=== PATIENT | female | born 2000 | race Caucasian/White ===

== ENCOUNTER 2021-10-30 18:40 | Inpatient (IN) | payer OTHER, SELFPAY ==
[2021-10-30] VITALS (15 sets, daily range): BP systolic 102–137; BP diastolic 66–81; PULSE 69–118; TEMP 36.4–36.6; O2SAT 98–100; BMI 25.0
[2021-10-30 19:28] LABS: ROM Internal Control Test YES-OK TO RESULT pt. (Internal QC); ROM Patient Test Negative (Negative)
[2021-10-30 20:31] LABS: Absolute Lymphocyte Count 1.36 X10^3/uL (0.83-4.51); Absolute Neutrophil Count 9.9 X10^3/uL (2.0-7.7); Basophil# 0.02 X10^3/uL; Basophil% 0.2 % (0-1); Eosinophil# 0.02 X10^3/uL; Eosinophils% 0.2 % (0-5); Hematocrit 36.4 % (37-47); Hemoglobin 12.3 g/dL (12.0-15.0); Lymphocyte # 1.36 X10^3/ul (0.83-4.51); Lymphocyte % 11.4 % (19-41); Mean Corp Hgb Conc 33.8 g/dL (32-36); Mean Corpuscular Hgb 30.8 pg (27.0-32.0); Mean Platelet Vol. 13.1 fl (6.2-12.0); Monocyte# 0.57 X10^3/uL; Monocyte% 4.8 % (0-10); NRBC Flagged by Analyzer 0 % (0-5); Neutrophil # 9.93 X10^3/uL (2.7-7.7); Neutrophil % 82.7 % (47-70); Platelet Count 135 K/mm3 (150-450); RBC Distribution Width CV 12.9 % (11.6-14.6)
--- NOTE | 2021-10-30 20:39 | PCM.HP.OB ---
HPI - General General Date of Admission: 10/30/21 Date of Service: 10/30/21 Chief Complaint: labor HPI Narrative BITA LYONS, is a 21 F at 38w1d who presents in labor at 5 cm dilated. No vb, lof. Good FM. History of hyperemesis on Zofran pump. History of IUGR EFW 16% with AC3%. PFSH PFS Medical History (Updated 10/30/21 @ 20:[address] Carmel Dotson, DO) Anxiety Depression Allergy/AdvReac Type Severity Reaction Status Date / Time No Known Allergies Allergy Verified 10/30/21 19:18 Family History no significant family his Surgical History no surgical history Social History Smoking Status: Current every day smoker History Elective abortions Hx Para 1 Spontaneous abortions Hx # Term Pregnancies Ectopic pregnancies Hx # Pregnancies Multiple births # of living children NST FHR Rate Baby A Baseline: 140 Variability:: Moderate Accelerations:: None Decelerations:: None Vital Signs Vital Signs Vital Signs: 10/30/21 19:52 10/30/21 19:52 10/30/21 20:34 Pulse Rate 118 H 104 H Blood Pressure 137/75 H BP Systolic 137 BP Diastolic 75 Pulse Ox 10/30/21 20:34 Pulse Rate Blood Pressure BP Systolic BP Diastolic Pulse Ox 100 Weight Weight: 174 lb 8 oz Body Mass Index (BMI) 25.0 Labs Labs Labs: Blood Type Pending Antibody Screen Pending Hct 36.4 % (37-47) L Hgb 12.3 g/dL (12.0-15.0) Assessment & Plan (1) 38 weeks gestation of : PLAN: Admit for routine intrapartum care. GBS negative. Nitrous Oxide and warm water immersion for pain control. Bitacurtis Avery CNM made aware of patient on L&D. See delivery report. (2) History of hyperemesis gravidarum: (3) IUGR (intrauterine growth restriction): (4) History of depression: (5) History of anxiety:
[2021-10-30] MEDS: Oxytocin 30 units/NS 500 ml 30 UNITS/500 ML IV.SOLN 334 UNITS IV (20:46)
--- NOTE | 2021-10-30 20:56 | EX.PCM.OBRPT ---
Assessment & Plan (1) Precipitous delivery: (2) 38 weeks gestation of : (3) IUGR (intrauterine growth restriction): Maternal Data Information SILVANO Calculator Estimated Delivery Date Method Current WG Current Estimate 11/12/21 Manual 38w 1d Vaginal Delivery Maternal Presentation Maternal Presentation: Active Labor Maternal Presentation: Patient at 38.1 weeks gestation that presents in spontaneous, active labor. Operative Information Pre-Operative Diagnosis: Term gestation, Spontaneous active labor Post-Operative Diagnosis: Precipitous delivery, live female infant Surgery / Procedure Performed: Spontaneous Vaginal Delivery Type of Anesthesia: None Estimated Blood Loss: 250 cc Time of Delivery: 20:42 Findings Description of Procedure: Called to room due to patient wanting to push. Bulging bag ruptured artificially for clear fluid. Patient delivered infant head with next push followed immediately by body. Cord around body. Vigorous female placed on maternal abdomen and attended to by nursing staff. 3 vessel cord clamped and cut by FOB after delay. Pitocin IV started for active management of the third stage of labor. Placenta delivered spontaneously and intact. Vaginal sweep completed. Vagina and perineum intact. Fundus firm 2 below U. EBL 250 cc, APGARS 8/9. Patient and infant bonding well at this time. Presentation: Vertex Amniotic Membrane Rupture Type: Artificial Time of Membrane Rupture: 2036 Amniotic Fluid Description: Clear Placental Delivery Description: Spontaneous Placenta Disposition: [facility] Cord Vessel Description: 3 Vessels Cord Entanglement: - (Around body x1) Nuchal Cord Compression: Without compression Infant A Gender: Female (1 minute): 8 (5 minute): 9 Delayed Cord Clamping: Yes Post Vaginal Delivery Medications Given After Delivery: IV Pitocin Episiotomy Description: None Laceration: None
[2021-10-30 21:50] LABS: Amphetamine Urine VISTA NEGATIVE (<1000 ng/mL); Barbiturate Urine VISTA NEGATIVE (< 200 ng/mL); Benzodiazepine Urine VISTA NEGATIVE (< 200 ng/mL); Cocaine Urine VISTA NEGATIVE (< 300 ng/mL); Ecstacy Urine VISTA NEGATIVE (< 500 ng/mL); Methadone Urine VISTA NEGATIVE (< 300 ng/mL); PCP Urine VISTA NEGATIVE (< 25 ng/mL); THC Urine VISTA POSITIVE (< 50 ng/mL); Vista UDS pH Range 8
[2021-10-31] VITALS (7 sets, daily range): BP systolic 108–120; BP diastolic 69–73; PULSE 72–81; RESP 14–16; TEMP 36.7–36.8; O2SAT 97–99
--- NOTE | 2021-10-31 09:48 | PN.OBGYN_ITS ---
Subjective Subjective Patient seen at bedside. Feeling good. Ambulating and voiding without difficulty. with minimal support. Lochia decreasing. Desires discharge home tonight after 24 hours. Objective Data Objective Data Vital Signs: Vital Signs Temp Pulse Resp BP Pulse Ox O2 Del Method 98.3 F 78 16 108/70 97 Room Air 10/31/21 14:41 10/31/21 14:42 10/31/21 14:41 10/31/21 14:42 10/31/21 14:41 10/31/21 14:41 Oxygen Delivery Method Room Air Weight: 174 lb 8 oz Body Mass Index (BMI) 25.0 Intake & Output: Intake and Output for Last 24 Hours 10/29/21 10/30/21 10/31/21 23:59 23:59 23:59 Intake Total 500 / 500 Output Total 600 / 600 Balance -100 / -100 Lab / Micro Data Result Diagrams: 10/30/21 19:20 Labs: Laboratory Results - last 24 hr 10/30/21 18:40: Vag Amniotic Fld Detect Negative 10/30/21 19:20: WBC 12.0 H, RBC 4.00 L, Hgb 12.3, Hct 36.4 L, MCV 91.0, MCH 30.8, MCHC 33.8, RDW Std Deviation 42.0, RDW Coeff of Toribio 12.9, Plt Count 135 L, MPV 13.1 H, Immature Gran % (Auto) 0.700, Neut % (Auto) 82.7 H, Lymph % (Auto) 11.4 L, [place]aus % (Auto) 4.8, Eos % (Auto) 0.2, Baso % (Auto) 0.2, Absolute Neuts (auto) 9.9 H, Absolute Lymphs (auto) 1.36, Nucleated RBC % 0 10/30/21 19:20: Blood Type O NEGATIVE, Antibody Screen NEGATIVE 10/30/21 21:05: Urine Opiates Screen NEGATIVE, Urine Methadone Screen NEGATIVE, Ur Barbiturates Screen NEGATIVE, Ur Phencyclidine Scrn NEGATIVE, Ur Amphetamines Screen NEGATIVE, MDMA (Ecstasy) Screen NEGATIVE, U Benzodiazepines Scrn NEGATIVE, Urine Cocaine Screen NEGATIVE, U Cannabinoids Screen POSITIVE H, Ur Drug Screen Comment Micro: Microbiology 10/30/21 19:20 Nasal Secretion SARS-CoV-2 Antigen (Rapid) - Final ROS Eyes Eyes: Denies blurry vision, change in vision or spots in vision ENT HEENT: Denies dizziness or headache(s) Cardiovascular Cardiovascular: Denies abdominal pain, chest pain or dyspnea Respiratory/Chest Respiratory/Chest: Denies cough, dyspnea, shortness of breath at rest or shortness of breath with exertion Gastrointestinal Gastrointestinal: Denies abdominal pain, diarrhea or vomiting Genitourinary Genitourinary: Denies change in urinary stream, difficulty urinating or dysuria Musculoskeletal Musculoskeletal: Reports none Integumentary Integumentary: Denies rash Neurologic Neurologic: Denies dizziness, headache(s), memory loss or weakness Physical Exam Const alert and no apparent distress General Appearance: cooperative and comfortable Exam Limitations: no limitations HEENT normocephalic Eyes General Eye: normal appearance of both eyes Neck full ROM General: normal visual inspection Chest Chest: symmetrical chest wall rise Resp normal respiratory effort and normal air movement Effort and Inspection: symmetric chest movement Auscultation: clear to auscultation bilaterally Cardio regular rate and regular rhythm GI normal to inspection, nondistended, normoactive bowel sounds Back/Spine normal ROM Extremity full ROM and no calf tenderness General Extremity: normal exam except as noted Skin no rashes or lesions noted Neuro CN's II-XII intact bilaterally Psych mental status grossly normal Assessment & Plan (1) Precipitous delivery: (2) Care and examination of lactating mother: PLAN: Plan PPD 1 Routine care support D/C home with follow up in office within 10 days.
--- NOTE | 2021-10-31 16:53 | PCM.DC ---
Discharge Instructions Diet Discharge Diet: No restrictions Activity Discharge Activity: Return to Normal Activity, May Shower and May Take a Tub Bath May resume sexual activity in: 4-6 weeks Weight Bearing Status: Weight bearing as tolerated Dressing / Incision Call your doctor if you observe: Inability to urinate, Using more than 1 pad per hour, Shortness of breath, Dizziness, Swelling in the ankles, Chest pain, Calf discomfort and Uncontrolled pain Follow Up Care When: Within 10 days Test Results: Test results from this visit will be discussed in further detail at your follow-up appointment, if applicable. Discharge Plan Admission Admit Date/Time: 10/30/21 18:40 Primary Reason for Your Visit: Labor and Delivery Attending Provider: Carmel Dotson Primary Care Provider: Care Physician,No Primary Discharge Orders/Prescriptions Referrals / Follow Up: Caryn Avery CNM [Med Staff - [facility] Practice Prof] - Care Physician,No Primary [Primary Care Provider] - Disposition Disposition (needs filled in before D/C Order can be placed): Home, Self Care
== END 2021-10-31 22:30 | disposition home or self-care (01) | DRG 807 ==
LOC: WPOUT 18:43 → WP 18:43
PROVIDERS: Admitting Provider Obstetrics & Gynecology; Visit Provider Obstetrics & Gynecology
DX: O62.3 Precipitate labor (principal); Z37.0 Single live birth; O36.5930 Maternal care for other known or suspected poor fetal growth, third trimester, not applicable or unspecified; F17.200 Nicotine dependence, unspecified, uncomplicated; F41.9 Anxiety disorder, unspecified; O99.344 Other mental disorders complicating childbirth; F32.A Depression, unspecified; O99.334 Smoking (tobacco) complicating childbirth; Z3A.38 38 weeks gestation of pregnancy; O69.81X0 Labor and delivery complicated by cord around neck, without compression, not applicable or unspecified; Z39.1 Encounter for care and examination of lactating mother
CPT/HCPCS: 59025; 59050; 80307; 84112; 85025; 86850; 86900; 86901; 87811; 99218; 99406; G0378

== ENCOUNTER 2022-01-15 08:48 | Day surgery (SDC) | payer OTHER, MEDICAID, SELFPAY ==
[2022-01-15] VITALS (8 sets, daily range): BP systolic 88–114; BP diastolic 45–72; PULSE 59–119; RESP 16–22; TEMP 36.7–37.3; O2SAT 92–100; BMI 25.5
--- NOTE | 2022-01-15 | FALS_PTH ---
PATIENT: BITA LYONS LOC: [facility] [place] U#:[id number] AGE/SX: 21/ ROOM: RE01/15/[address]: Dr. Juanita Messer MD : 2000 BED: DIS: 01/15/2022 SPEC #: [id number] RECD: 01/15/22 13:14 STATUS: JOLLY ARVIZUSampson #: [id number] ERASMO: 01/15/22 00:[address]: Juanita Messer DEPT: SURGICAL PATHOLOGY RECD BY: Adán Azul Tissues: Fallopian tube Procedures: Surgery Specimen Level II HEADER OPERATION: Laparoscopic salpingectomy PRE-OP DIAGNOSIS: Sterilization TISSUE SUBMITTED: Bilateral fallopian tubes MICROSCOPIC DIAGNOSIS Right and left fallopian tubes, bilateral salpingectomies: Complete cross-sections of fallopian tubes. Fragments of benign paratubal cysts. AM:albin 01/16/2022 MICROSCOPIC DESCRIPTION Slides are reviewed. GROSS DESCRIPTION Received in fixative is one container labeled with the patient's name and designated bilateral fallopian tubes. The specimen consists of bilateral fallopian tubes including fimbrial ends measuring 6.5 cm in length and 0.5 cm in diameter and 6 cm in length and 0.5 cm in diameter. A small detached portion of fallopian tube is also noted measuring 0.5 cm in length and 0.3 cm in diameter. The fallopian tubes are not identified as right or left. Sections reveal unremarkable cut surfaces. Also received in the container is a piece of silva-pink cyst measuring 0.5 x 0.3 x 0.1 cm. Rn Call Center sections are submitted in two cassettes as follows: 1 - one fallopian tube, 2 - second fallopian and cyst. / SJ:rg 01/15/2022 TC:5 CPT: 49953 x2
--- NOTE | 2022-01-15 09:14 | PCM.HP.BLA ---
History and Physical Date of Admission: 01/15/22 21-year-old 2 para 2 female who presents for elective sterilization. Past medical history significant for migraines, irritable bowel syndrome, anxiety and depression, Raynaud's Allergies: No known drug allergies. Medications: None Past surgical history: None Physical exam: Awake, alert, no acute distress Skin: Warm dry and intact Lungs: Clear to auscultation bilateral Heart: S1-S2 regular rate and rhythm Assessment & Plan Assessment/Plan (1) Sterilization: PLAN: Risk benefits and alternatives to sterilization were discussed with patient, her questions were answered to her satisfaction she desires to proceed. She understands permanent irreversible. She understands risks of ectopic and failure and regret.. She understands surgical risks. Consent was signed and she desires to proceed. She does not desire future childbearing.
[2022-01-15 09:29] LABS: Internal QC Validated? YES +Cl - CLEAR BKGD; Pregnancy, Urine Negative Negative
[2022-01-15 10:12] LABS: Hematocrit 40.1 % (37-47); Hemoglobin 13.1 g/dL (12.0-15.0); Mean Corp Hgb Conc 32.7 g/dL (32-36); Mean Corpuscular Hgb 27.8 pg (27.0-32.0); Mean Platelet Vol. 11.5 fl (6.2-12.0); Platelet Count 182 K/mm3 (150-450); RBC Distribution Width CV 13.8 % (11.6-14.6); RBC Distribution Width SD 42.5 fl (35.1-43.9); Red Blood Count 4.72 M/mm3 (4.2-5.4); White Blood Count 4.1 K/mm3 (4.4-11.0)
[2022-01-15] MEDS: Lactated Ringers 1,000 ML 15 ML IV (10:24)
--- NOTE | 2022-01-15 10:40 | DCINST_ITS ---
Discharge Instructions Diet Discharge Diet: Light diet - advance as tolerated Activity Discharge Activity: May Drive (01/17/2022 as tolerated), May Shower (01/16/22 as tolerated) and May Take a Tub Bath (01/21/22 as tolerated) Return to work on:: 01/19/22 May resume sexual activity in: 1-2 weeks Dressing / Incision Call your doctor if your incision/area has: Continuous Slow Oozing, Sudden Increased Bleeding, Increased Redness and Foul Smelling Discharge Call your doctor if you observe: Fever of 101 or Higher Cleanse incision/area with: Soap & Water (your incision has skin glue, it can get wet, leave it on for 10 days or until it falls off) Follow Up Care Please Follow Up With: Juanita Messer MD When: as needed for any concerns Test Results: Test results from this visit will be discussed in further detail at your follow- up appointment, if applicable. Discharge Plan Admission Primary Reason for Your Visit: Tubal sterilization Attending Provider: Juanita Messer Primary Care Provider: BRUNO COBB Discharge Orders/Prescriptions Prescriptions: New ibuprofen [ibuprofen] 600 MG tablet 600 mg PO Q6H PRN (Reason: Pain) 10 Days Qty: 30 1RF Referrals / Follow Up: BRUNO COBB [Other] Disposition Disposition (needs filled in before D/C Order can be placed): Home, Self Care
[2022-01-15] MEDS: Bupivacaine 0.25% 30 ML Vial (10:49)
[2022-01-15] MEDS: Lactated Ringers 1,000 ML 75 ML IV (11:11)
--- NOTE | 2022-01-15 11:14 | OP.PCM_ITS ---
Problems Associated Problem List Diagnoses (1) Sterilization: Report of Operation Date of Procedure: 01/15/22 Pre-Operative Diagnosis: sterilization reqeust Post-Operative Diagnosis: same Surgery/Procedure Performed:: Laparoscopic bilateral salpingectomy Description of Surgical Findings:: normal uterus, tubes, ovaries, cervix and vagina,. Normal appendix and liver Surgeon: Juanita Messer astronaut mission specialist: Inocencio Morales Type of Anesthesia: General Anesthesiologist: Radha Gonzalez Special Medications: none Specimen's removed: bilateral fallopian tubes Drains: none Estimated Blood Loss (mL): 5 Fluids Replaced: 1100 Description of Procedure: The patient was taken to the operating room where she was prepped and draped in the dorsolithotomy position. A weighted speculum was placed in the vagina and the anterior lip of the cervix was grasped with a tenaculum. The Minerva uterine manipulator was placed and the remainder of the instruments were removed from the vagina. Attention was turned to the abdomen. All port sites were infiltrated with 0.5% Marcaine before skin incisions were made. A 5 mm [intraumbilical] incision was made. The anterior abdominal wall was tented up with 2 towel clamps while a 5 mm blade less trocar and sleeve were [directly inserted]. Intraperitoneal placement was confirmed with the laparoscope. The pneumoperitoneum was created and the underlying abdominal contents were intact. The patient was placed in Trendelenburg. Right and left lower quadrant ports were placed under direct visualization lateral to the inferior epigastric vessels. The bowel was swept away and the above findings were noted. The LigaSure device was used to clamp seal and transect the antimesenteric portions of the right tube to the cornual insertion of the uterus. The tube was amputated from the uterus and the pedicles were all confirmed to be hemostatic. The same procedure was performed on the contralateral side. The specimens were brought out through a 5 mm port. The pedicles were again examined and found to be hemostatic. The lateral ports were removed under direct visualization and no active bleeding was noted. The pneumoperitoneum was released. The skin incisions were closed with Monocryl suture in a subcuticular fashion and skin glue. The vaginal instruments were removed and the vaginal sweep was completed by me. The procedure was performed by me with assistance. All sponge and needle counts were correct and the patient was taken to the recovery room in stable condition. Grafts/Implants Used: none Procedure Start Time: 10:49 Procedure Stop Time: 11:16 Complications none Admit VTE Documentation VTE Present on Admission: No VTE Mechan Device Prophylaxis: SCD's VTE Pharm Prophylaxis ordered?: No Reason prophylaxis not ordered:: Procedure Not Indicated
== END 2022-01-15 12:54 | disposition home or self-care (01) ==
LOC: SDC 08:52 → AC 08:54
PROVIDERS: Referring Provider Obstetrics & Gynecology; Visit Provider Obstetrics & Gynecology
PROC: (CPT 58661; principal; 2022-01-15 10:15)
DX: Z30.2 Encounter for sterilization (principal); N83.8 Other noninflammatory disorders of ovary, fallopian tube and broad ligament
CPT/HCPCS: 58661; 00840; 81025; 85027; 88302; J7120; J2405